=== PATIENT | female | born 1935 | race Caucasian/White ===

== ENCOUNTER 2020-09-21 09:43 | Emergency (ER) | payer OTHER ==
[~2020-09-21] VITALS: Ht 162.6 cm; Wt 68.0 kg
[~2020-09-21 09:43] MED LIST: FISH OIL 1,0001 EAC5 PO; MULTIVITAMINS1 EAC7 PO; NORCO 5-325 TA1 EACH PO; VITAMIN D400 UNI1 PO
[2020-09-21] MEDS ORDERED: NEURONTIN300 MG PO (10:51)
[2020-09-21] MEDS ORDERED: ADVIL DUAL ACT1 EACH PO (10:51)
[2020-09-21 10:52] VITALS: BP 141/63
== END 2020-09-21 10:57 | disposition home or self-care (01) ==
LOC: ER 09:43
DX: S93.402A Sprain of unspecified ligament of left ankle, initial encounter (principal); S93.602A Unspecified sprain of left foot, initial encounter; Z88.0 Allergy status to penicillin; Z90.89 Acquired absence of other organs; Z79.899 Other long term (current) drug therapy; W19.XXXA Unspecified fall, initial encounter; Y93.89 Activity, other specified; Y92.89 Other specified places as the place of occurrence of the external cause; Y99.8 Other external cause status